=== PATIENT | male | born 1990 | race Caucasian/White ===

== ENCOUNTER 2022-04-22 14:20 | Emergency (ER) | payer OTHER ==
[~2022-04-22] VITALS: Ht 170.2 cm; Wt 80.7 kg
[2022-04-22 14:22] VITALS: BP 120/70
--- NOTE | 2022-04-22 14:25 | NUR ---
BIBS C/O R MIDDLE FINGER PAIN AND SWELLING. TWISTING INJURY x 1 WEEK. CMS GOOD, LIMITED ROM. WILL CONTINUE TO MONITOR THE PATIENT.
[2022-04-22] MEDS ORDERED: KETOROLAC TROMETHAMINE INJ 30 MG/ML VIAL ONE (15:02)
[2022-04-22] MEDS: KETOROLAC TROMETHAMINE INJ 30 MG/ML VIAL IM ONE (15:09)
[2022-04-22] MEDS ORDERED: HYDR-4209 PO (15:14)
[2022-04-22] MEDS ORDERED: IBUP-1957 PO (15:14)
--- NOTE | 2022-04-22 15:55 | NUR ---
Patient discharged to home in stable condition. Written and verbal after care instructions given. Patient verbalizes understanding of instruction. Splint applied. Ambulatory w/ steady gait.
== END 2022-04-22 15:56 | disposition home or self-care (01) ==
LOC: ER 14:24
DX: S62.632A Displaced fracture of distal phalanx of right middle finger, initial encounter for closed fracture (principal); Z79.899 Other long term (current) drug therapy; X50.1XXA Overexertion from prolonged static or awkward postures, initial encounter; Y93.89 Activity, other specified; Y92.89 Other specified places as the place of occurrence of the external cause; Y99.8 Other external cause status
CPT/HCPCS: 29130; 73130; 96372; 99283; J1885